=== PATIENT | male | born 1940 | race Hispanic/Latino ===

== ENCOUNTER 2016-12-16 06:30 | Inpatient (IN) | payer MEDICARE ==
[2016-12-16 07:16] LABS: Basophils % (Auto) 0.9 % (0.0-1.8); Eosinophils % (Auto) 6.5 % (0.0-4.3); Hematocrit 40.4 % (35.5-45.6); Hemoglobin 14.3 gm/dl (11.8-15.2); Mean Corpuscular HGB Conc 35 % (32-34); Mean Corpuscular Hemoglobin 31 pg (28-32); Mean Corpuscular Volume 89 fl (84-94); Platelet Count 184 K/mm3 (140-440); Red Blood Count 4.55 M/mm3 (3.65-5.03); Red Cell Distribution Width 13.1 % (13.2-15.2); White Blood Count 8.1 K/mm3 (4.5-11.0)
[2016-12-16 07:36] LABS: INR 0.99 (0.87-1.13)
[2016-12-16] MEDS ORDERED: ECOTRIN PO ONE (08:00)
[2016-12-16] MEDS ORDERED: NACL 0.9% 500 ML 500 ML IV SCH (08:00)
[2016-12-16] MEDS ORDERED: CALAN ONE (08:13)
[2016-12-16] MEDS ORDERED: XYLOCAINE 2% INFILTRATI ONE (08:13)
[2016-12-16] MEDS ORDERED: HEPARIN/NS 5000 UNIT/500ML(CATH LAB) 1,000 ML IR ONE (08:13)
[2016-12-16] MEDS ORDERED: NITROGLYCERIN SYRINGE 3 ML ONE (08:14)
[2016-12-16 08:20] LABS: Anion Gap 16 mmol/L; BUN/Creatinine Ratio 26; Blood Urea Nitrogen 13 mg/dL (9-20); Calcium 9.7 mg/dL (8.4-10.2); Carbon Dioxide 26 mmol/L (22-30); Chloride 102.4 mmol/L (98-107); Glucose 115 mg/dL (75-100); Sodium 140 mmol/L (137-145)
[2016-12-16] MEDS: VERSED ONE ×2 (08:58→09:40)
[2016-12-16] MEDS: SUBLIMAZE ONE ×2 (08:58→09:36)
[2016-12-16] MEDS: HEPARIN 10,000 UNITS/10 ML ONE ×2 (09:00→09:01)
[2016-12-16] MEDS ORDERED: NACL 0.9% 100 ML ONE (09:16)
[2016-12-16] MEDS: ANGIOMAX IV ONE ×2 (09:36→09:42)
[2016-12-16] MEDS ORDERED: EFFIENT PO ONE (09:54)
[2016-12-16] MEDS ORDERED: ALUM-MAG HYDROX-SIMETH 200-200-20MG/5ML ONE (09:54)
--- NOTE | 2016-12-16 10:35 | Cardiac Catherization Report ---
CARDIAC CATHETERIZATION REFERRING PHYSICIAN: Tevin Goncalves M.D. INDICATION FOR PROCEDURE: The patient is a very pleasant 76-year-old gentleman who presents with shortness of breath; moderate aortic stenosis, symptomatic; and questionable abnormal stress test, referred for left heart catheterization. Risks, benefits, and potential alternatives explained at length prior to obtaining informed consent. 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 Milton's test in right hand was normal. A 2 mL of 2% lidocaine used to anesthetize the right wrist. A standard 6-[place] hydrophilic sheath used to cannulate the right radial artery via modified Seldinger technique. All exchanges performed to exchange a J-tip guidewire. JL3.5 catheter used to engage left main. No dampening or ventricularization. Cineangiography performed in all projections. JR4 catheter used to cross the aortic valve under fluoroscopic guidance. Left ventriculography performed in 30 FRANZ and 30 SERBIAN projections via hand injections, catheter flushed. Manual pullback performed with continuous pressure monitoring. Catheter used to engage the right coronary. No dampening or ventricularization. Cineangiography performed in all projections. DATA: Aortic pressure is 140/60, LV pressure is 180. LVEDP of 20 mmHg. Left ventriculography revealed normal systolic performance with estimated ejection fraction of 55-60%. No evidence of aortic stenosis, high normal LVEDP. CORONARY ANATOMY: This is a right dominant system. Right coronary is a moderate sized vessel, courses AV groove, distally bifurcates in the posterior descending and posterolateral branch. No discrete stenosis noted. Scattered luminal irregularities. Left main is without significant disease. It bifurcates into left anterior descending and left circumflex. Left anterior descending artery is a moderate sized vessel, courses anterior intergroove, wraps around the apex. There is a 95% proximal discrete stenosis. There is a long 80% stenosis in the mid segment. Left circumflex without significant disease. At this point, we decided to proceed with PCI given the location and severity of the disease. Angiomax was loaded. Abnormal ACT is confirmed. An EBU 3.5 guide used to engage left main without difficulty. No dampening. A Prowater wire used to cross the lesion without difficulty. We used a 2.5 x 12 balloon to predilate the proximal LAD lesion. Next, we used a 3.0 x 12 Integrity bare metal stent. I used a bare metal stent given his moderate aortic stenosis in case he needed valve surgery in the coming year. Excellent result. Intravascular ultrasound was performed. Next, we used a 2.75 x 18 bare metal stent Integrity. Next, IVUS was performed. The entire length of the LAD and left main without other significant disease. Both stents are well apposed and expanded. No complications. Final angiogram reveals excellent result. CONCLUSIONS: 1. Significant single vessel coronary artery disease. Successful IVUS guided PCI, 95% proximal LAD with placement of bare metal stent Integrity (3.0 x 12) with excellent final angiographic and ultrasonographic result. 2. Successful IVUS guided PCI 80% mid LAD with placement of bare metal stent (2.75 x 18 Integrity) with excellent final angiographic and ultrasonographic result. 3. Moderate stable aortic stenosis with high normal LVEDP. 4. Normal left ventricular systolic performance with estimated ejection fraction of 55-60%. At this point, I believe his aortic valve is essentially moderate and asymptomatic. Effient, aspirin, statin therapy, risk factor modification. Follow up with me in the office in a week. A standard radial care. Results of procedure explained in length to the patient and family. All questions and concerns were addressed. JOB# [id number] NEETU/MAURICE
[2016-12-16] MEDS ORDERED: NACL 0.9% 1000 ML 0 ML ONE (10:39)
[2016-12-16] MEDS ORDERED: NORCO 5/325 PO ONE (11:30)
[2016-12-16] MEDS: TYLENOL PO PRN (20:54)
[2016-12-17] MEDS: TYLENOL PO PRN (06:30)
[2016-12-17] MEDS ORDERED: NORVASC PO SCH (06:30)
[2016-12-17 06:45] LABS: Basophils % (Auto) 0.5 % (0.0-1.8); Hematocrit 39.4 % (35.5-45.6); Hemoglobin 13.7 gm/dl (11.8-15.2); Mean Corpuscular HGB Conc 35 % (32-34); Mean Corpuscular Hemoglobin 31 pg (28-32); Mean Corpuscular Volume 89 fl (84-94); Platelet Count 169 K/mm3 (140-440); Red Blood Count 4.42 M/mm3 (3.65-5.03); Red Cell Distribution Width 13.6 % (13.2-15.2); White Blood Count 8.4 K/mm3 (4.5-11.0)
[2016-12-17 07:05] LABS: Creatine Kinase MB 12.8 ng/mL (0.0-4.0)
[2016-12-17 07:09] LABS: Anion Gap 15 mmol/L; BUN/Creatinine Ratio 18; Blood Urea Nitrogen 9 mg/dL (9-20); Calcium 8.9 mg/dL (8.4-10.2); Carbon Dioxide 26 mmol/L (22-30); Chloride 103.3 mmol/L (98-107); Creatine Kinase 67 units/L (55-170); Glucose 120 mg/dL (75-100); Potassium 3.4 mmol/L (3.6-5.0); Sodium 141 mmol/L (137-145)
[2016-12-17 07:25] LABS: Cholesterol 137 mg/dL (50-199); HDL Cholesterol 40 mg/dL (40-59); LDL Cholesterol,Direct 83 mg/dL (50-130); Triglycerides 72 mg/dL (2-149)
--- NOTE | 2016-12-17 08:30 | XRay Report ---
AP CHEST: HISTORY: chest pain AP view of the chest demonstrates a normal mediastinal and cardiac contour with clear lungs and normal bony and soft tissue structures. IMPRESSION: Unremarkable AP chest.
[2016-12-17] MEDS ORDERED: COZAAR PO SCH (10:00)
[2016-12-17] MEDS ORDERED: ASPIRIN PO SCH (10:00)
[2016-12-17] MEDS ORDERED: EFFIENT PO SCH (10:20)
--- NOTE | 2016-12-17 10:49 | Short Stay Summary ---
Short Stay Documentation Date of service: 12/17/16 - History H&P: obtained from office - Allergies and Medications Current Medications: Allergies adhesive Allergy (Verified 12/16/16 10:33) Rash Home Medications Medication Instructions Recorded Confirmed Last Taken Type Amlodipine Besylate [Amlodipine 5 mg PO HS 12/16/16 12/16/16 12/15/16 History Besylate] Aspirin [Adult Low Dose Aspirin EC] 81 mg PO DAILY 12/16/16 12/16/16 12/15/16 History Esomeprazole Magnesium [NexIUM] 40 mg PO QDAY 12/16/16 12/16/16 12/15/16 History Ibuprofen [Motrin] 800 mg PO Q8HR PRN 12/16/16 12/16/16 12/12/16 History Losartan/Hydrochlorothiazide 1 tab PO QDAY 12/16/16 12/16/16 12/15/16 History [Losartan-Hctz 100-12.5 mg Tab] Modafinil [Provigil] 200 mg PO QAM 12/16/16 12/16/16 1 Week Ago History Montelukast [Singulair] 10 mg PO QPM 12/16/16 12/16/16 12/15/16 History Triamcinolone 1 applicatio TP PRN 12/16/16 12/16/16 12/13/16 History diphenhydrAMINE [Benadryl ORAL LIQ] 25 mg PO HS PRN 12/16/16 12/16/16 12/15/16 History Active Medications Acetaminophen (Tylenol) 1,000 mg PO Q6H PRN PRN Reason: Pain, Mild (1-3) Last Admin: 12/17/16 06:30 Dose: 1,000 mg Amlodipine Besylate (Norvasc) 5 mg PO QDAY [facility] Last Admin: 12/17/16 06:29 Dose: 5 mg Aspirin (Aspirin) 325 mg PO QDAY [facility] Atorvastatin Calcium (Lipitor) 40 mg PO QHS [facility] Last Admin: 12/16/16 21:05 Dose: 40 mg Losartan Potassium (Cozaar) 12.5 mg PO QDAY [facility] Potassium Chloride (K-Dur) 40 meq PO ONCE ONE Stop: 12/17/16 10:27 Prasugrel (Effient) 10 mg PO QDAY [facility] - Brief post op/procedure progress note Date of procedure: 12/16/16 Pre-op diagnosis: abnormal stress test Post-op diagnosis: other (CAD) Procedure: [facility] with PCI of proximal LAD and mid LAD - see cath report Anesthesia: local Estimated blood loss: none Condition: stable - Disposition Condition at discharge: Stable Disposition: DC-01 TO HOME OR SELFCARE - Discharge Diagnoses (1) Coronary artery disease Status: Chronic Qualifiers: Coronary Disease-Associated Artery/Lesion type: due to calcified coronary lesion [place] vs. transplanted heart: N Associated angina: A Qualified Code(s): I25.10 - Atherosclerotic heart disease of [place] coronary artery without angina pectoris; I25.84 - Coronary atherosclerosis due to calcified coronary lesion; I25.84 - Coronary atherosclerosis due to calcified coronary lesion; I25.84 - Coronary atherosclerosis due to calcified coronary lesion (2) Stented coronary artery Status: Chronic (3) Aortic stenosis Status: Chronic Qualifiers: Cardiac valve disease etiology: C (4) Hypertension Status: Chronic Qualifiers: Hypertension type: H Short Stay Discharge Plan Activity: advance as tolerated Diet: low fat, low cholesterol, low salt Wound: open to air, keep clean and dry, per your surgeon's advice Follow up with: VIET MCWILLIAMS MD [Primary Care Provider] - 7 Days FRACISCO ZURITA MD [Staff Physician] - 7 Days ([place] office on 01/01/2017 @ 2: 45PM) Forms: CardCath PCI D/C Instructions Prescriptions: AtorvaSTATin [Lipitor] 40 mg PO QHS #30 tablet Prasugrel [Effient] 10 mg PO QDAY #30 tablet
[2016-12-17] MEDS ORDERED: K-DUR PO NR (11:30)
[2016-12-17 11:58] VITALS: BP 138/62
== END 2016-12-17 12:59 | disposition home or self-care (01) | DRG 249 ==
LOC: CATHLABREC 06:30 → 4A 10:20
PROVIDERS: ADMIT Internal Medicine; ATTEND Internal Medicine
PROC: 02703EZ Dilation of Coronary Artery, One Artery with Two Intraluminal Devices, Percutaneous Approach (ICD-10-PCS; principal; 2016-12-16)
PROC: 4A023N7 Measurement of Cardiac Sampling and Pressure, Left Heart, Percutaneous Approach (ICD-10-PCS; 2016-12-16)
PROC: B2111ZZ Fluoroscopy of Multiple Coronary Arteries using Low Osmolar Contrast (ICD-10-PCS; 2016-12-16)
PROC: B2151ZZ Fluoroscopy of Left Heart using Low Osmolar Contrast (ICD-10-PCS; 2016-12-16)
PROC: 6A751Z7 Ultrasound Therapy of Other Vessels, Multiple (ICD-10-PCS; 2016-12-16)
DX: I25.10 Atherosclerotic heart disease of native coronary artery without angina pectoris (principal); I35.0 Nonrheumatic aortic (valve) stenosis; I10 Essential (primary) hypertension; K22.70 Barrett's esophagus without dysplasia; I49.3 Ventricular premature depolarization; Z79.82 Long term (current) use of aspirin; Z79.899 Other long term (current) drug therapy
CPT/HCPCS: 36415; 71010; 80048; 80061; 82550; 82553; 84484; 85025; 85347; 85610; 85730; 92928; 92978; 93005; 93010; 93458; A9270-GY; C1725; C1753; C1769; C1876; C1887; C1894; J0583; J1644; J2250; J3010; J7030; J7040; Q9967

== ENCOUNTER 2021-08-28 06:31 | Day surgery (SDC) | payer MEDICARE ==
[2021-08-28] MEDS ORDERED: ASPIRIN EC 325 MG TAB PO NR (07:05)
[2021-08-28 07:25] LABS: Basophils # (Auto) 0.1 K/mm3 (0.0-0.1); Basophils % (Auto) 0.8 % (0.0-1.8); Eosinophils # (Auto) 0.5 K/mm3 (0.0-0.4); Eosinophils % (Auto) 6.9 % (0.0-4.3); Hematocrit 39.5 % (35.5-45.6); Hemoglobin 13.6 gm/dl (11.8-15.2); Lymphocytes # (Auto) 1.6 K/mm3 (1.2-5.4); Lymphocytes % (Auto) 23.3 % (13.4-35.0); Mean Corpuscular HGB Conc 35 % (32-34); Mean Corpuscular Volume 90 fl (84-94); Monocytes # (Auto) 0.9 K/mm3 (0.0-0.8); Monocytes % (Auto) 13.4 % (0.0-7.3); Platelet Count 173 K/mm3 (140-440); Red Cell Distribution Width 13.8 % (13.2-15.2)
[2021-08-28 07:37] LABS: Blood Urea Nitrogen 11 mg/dL (9-20); Calcium 9.7 mg/dL (8.4-10.2); Hemolysis Index 5
[2021-08-28 07:41] LABS: BUN/Creatinine Ratio 18
[2021-08-28 07:45] LABS: INR 0.97 (0.87-1.13)
[2021-08-28 07:46] LABS: Partial Thromboplastin Time 30.7 Sec. (24.2-36.6)
[2021-08-28] MEDS: SODIUM CHLORIDE 0.9% 500 ML 500 ML IV SCH ×3 (07:47→09:11)
[2021-08-28] MEDS ORDERED: VERAPAMIL 5 MG/2 ML INJ ONE (08:11)
[2021-08-28] MEDS: MIDAZOLAM 2 MG/2 ML INJ ONE ×2 (08:29→09:12)
[2021-08-28] MEDS: fentaNYL 100 MCG/2 ML INJ ONE ×2 (08:29→09:11)
[2021-08-28] MEDS: HEPARIN 10,000 UNITS/10 ML VIAL ONE ×2 (08:30→09:15)
[2021-08-28] MEDS: LIDOCAINE (1%) 10 MG/1 ML VIAL 20 ML MDV ONE ×2 (08:30→09:15)
[2021-08-28] MEDS: HEPARIN/NS 5000 UNIT/500ML 1,000 ML IR ONE ×2 (08:31→09:15)
[2021-08-28] MEDS: NITROGLYCERIN SYRINGE 3 ML ONE ×2 (08:32→09:15)
--- NOTE | 2021-08-28 09:08 | Electrocardiograph Report ---
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
--- NOTE | 2021-08-28 10:16 | Cardiac Catherization Report ---
DATE OF PROCEDURE: 08/28/2021 CARDIAC CATHETERIZATION REFERRING PHYSICIAN: Tevin Goncalves MD INDICATION FOR PROCEDURE: Severe aortic stenosis. PROCEDURE IN DETAIL: The patient was brought to chemical lab supervisor in a postabsorptive state, prepped and draped in sterile fashion. Milton's test in right hand is normal. A 2 mL of 2% lidocaine used to anesthetize the right wrist. A standard 6-[place] hydrophilic sheath used to cannulate the right radial artery via modified Seldinger technique. All exchanges performed to exchange a J-tip guidewire. JL3.5 catheter was used to engage the left main. No dampening or ventricularization. Cineangiography performed in all projections. JR4 catheter used to cross the aortic valve under fluoroscopic guidance. Left ventriculography was performed in the 30-degree FRANZ and 30-degree UPPER SORBIAN projections via hand injections, catheter flushed. Manual pullback performed with continuous pressure monitoring. Catheter used to engage the right coronary. No dampening or ventricularization. Next, catheter exchanged for a 6-[place] pigtail catheter. Root aortography was performed in the UPPER SORBIAN projection with power injector. Next, catheter removed from the body of wire, sheath removed. Manual pressure used to achieve hemostasis. There were no immediate complications. I directly supervised the administration of fentanyl and Versed for moderate sedation from 8:49 a.m. to 9:32 a.m. No immediate complications. The patient remained in normal sinus rhythm throughout the procedure. Aortic pressure is 127/80, LV pressure is 203, LVEDP of 20 mmHg. Left ventricular reveals normal systolic performance, estimated ejection fraction 55-60%. Root aortography reveals no evidence of dissection or ulcer. Mild central aortic insufficiency is present. Left main without significant disease, bifurcates into left anterior descending and left circumflex. Left circumflex, moderate sized vessel, courses AV groove, no significant disease. LAD is a moderate sized vessel, courses anterior intergroove, wraps around the apex, no significant disease, patent stent in the mid LAD. Right coronary is a moderate sized vessel, courses AV groove, no significant disease. CONCLUSIONS: 1. Severe valvular aortic stenosis with a peak to peak gradient of 70-75 mmHg and a mean gradient of 48-50 mmHg. 2. No significant epicardial coronary artery disease in this right dominant system. 3. Patent mid left anterior descending stent. 4. Normal left ventricular systolic performance, estimated ejection fraction of 60-65%. 5. Root aortography reveals mild aortic insufficiency with normal contour and no dissection or penetrating aortic ulcer. 6. Normal sinus rhythm throughout. 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 The patient will be set up to see [facility] at [place] for possible TAVR. The patient is clinically stable, continue medicines, standard radial care. Follow up with me in the office. TID: [id number] RECEIPT: [id number] NEETU/RUFINO
[2021-08-28] MEDS ORDERED: HYDROcodone/ACETAMINOPHEN 5-325 MG TAB PO PRN (11:00)
[2021-08-28] MEDS ORDERED: traMADol 50 MG TAB PO PRN (11:00)
--- NOTE | 2021-08-28 11:36 | Short Stay Summary ---
Short Stay Documentation Date of service: 08/28/21 - History H&P: obtained from office - Allergies and Medications Current Medications: Allergies adhesive Allergy (Verified 12/16/16 10:33) Rash bacitracin [From Neosporin ([id number])] Allergy (Verified 08/28/21 07:04) Rash neomycin [From Neosporin ([id number])] Allergy (Verified 08/28/21 07:04) Rash polymyxin B [From Neosporin ([id number])] Allergy (Verified 08/28/21 07:04) Rash Home Medications Medication Instructions Recorded Confirmed Last Taken Type Amlodipine Besylate 5 mg PO HS 12/16/16 08/28/21 08/28/21 History Esomeprazole Magnesium [NexIUM] 40 mg PO QDAY 12/16/16 08/28/21 08/28/21 History Montelukast [Singulair] 10 mg PO QPM 12/16/16 08/28/21 08/28/21 History Triamcinolone 1 applicatio TP PRN 12/16/16 08/28/21 08/28/21 History modafiniL [Provigil] 200 mg PO QAM 12/16/16 08/28/21 08/28/21 History Aspirin 325 mg PO QDAY tablet 12/17/16 08/28/21 08/28/21 Rx AtorvaSTATin [Lipitor] 40 mg PO QHS #30 tablet 12/17/16 08/28/21 08/28/21 Rx Cetirizine HCl [Cetirizine 5mg tab] 5 mg PO DAILY 08/28/21 08/28/21 08/28/21 History Losartan Potassium 100 mg PO DAILY 08/28/21 08/28/21 08/28/21 History Mirabegron [Myrbetriq] 50 mg PO QDAY 08/28/21 08/28/21 08/28/21 History modafiniL [Provigil] 200 mg PO QAM 08/28/21 08/28/21 1 Month Ago History ~07/28/21 Active Medications Hydrocodone Bitart/Acetaminophen (Hydrocodone/Acetaminophen 5-325 Mg Tab) 1 each PO Q4H PRN PRN Reason: Pain, Moderate (4-6) Stop: 08/28/21 22:00 Sodium Chloride (Nacl 0.9% 500 Ml) 500 mls @ 50 mls/hr IV DIRECT TADEO Stop: 08/28/21 17:59 Last Admin: 08/28/21 09:11 Dose: 50 mls/hr Tramadol HCl (Tramadol 50 Mg Tab) 50 mg PO Q4H PRN PRN Reason: Pain, Mild (1-3) Stop: 08/28/21 20:00 - Physical exam Integumentary: other (Dressing clean dry and intact with no signs of bleeding or hematoma) - Brief post op/procedure progress note Date of procedure: 08/28/21 Pre-op diagnosis: Aortic stenosis Post-op diagnosis: same (Aortic stenosis) Anesthesia: local Estimated blood loss: minimal - Hospital course Hospital course: Patient presents today for cardiac cath. Patient tolerated procedure well with no complications. Patient found to have severe valvular aortic stenosis with peak gradient of 70 to 75 mmHg and mean gradient of 40 to 50 mmHg's. No significant epicardial coronary artery disease and right dominant system. Patent mid left anterior descending state. See cath report for full detail. Patient to be discharged home and set up to see structural heart team at [place] for possible TAVR. Patient will follow-up in our clinic as an outpatient. Plan of care discussed with patient and daughter - Disposition Condition at discharge: Good Disposition: 01 HOME / SELF CARE / HOMELESS - Discharge Diagnoses (1) Aortic stenosis Status: Chronic (2) Coronary artery disease Status: Chronic Qualifiers: (3) Hypertension Status: Chronic (4) Stented coronary artery Status: Chronic Short Stay Discharge Plan Activity: advance as tolerated Diet: low fat, low cholesterol, low salt Wound: keep clean and dry, per your surgeon's advice Follow up with: MARCELA GREGORIO MD [Primary Care Provider] - 7 Days FRACISCO ZURITA MD [Staff Physician] - 7 Days Forms: CardCath PCI D/C Instructions
[2021-08-28 12:34] VITALS: BP 126/52
== END 2021-08-28 13:43 | disposition home or self-care (01) ==
LOC: CATHLABREC 06:31
PROVIDERS: ATTEND Internal Medicine
DX: I35.0 Nonrheumatic aortic (valve) stenosis (principal); I25.10 Atherosclerotic heart disease of native coronary artery without angina pectoris; I10 Essential (primary) hypertension; I73.9 Peripheral vascular disease, unspecified; E78.00 Pure hypercholesterolemia, unspecified; K21.9 Gastro-esophageal reflux disease without esophagitis; M19.90 Unspecified osteoarthritis, unspecified site; Z80.42 Family history of malignant neoplasm of prostate; Z88.8 Allergy status to other drugs, medicaments and biological substances; Z79.899 Other long term (current) drug therapy; Z79.82 Long term (current) use of aspirin; Z95.5 Presence of coronary angioplasty implant and graft; Z98.49 Cataract extraction status, unspecified eye; Z87.01 Personal history of pneumonia (recurrent); Z80.51 Family history of malignant neoplasm of kidney; Z98.890 Other specified postprocedural states
CPT/HCPCS: 36415; 80048; 85025; 85610; 85730; 93005; 93458; 93567; 99156; 99157; C1894; J1644; J1815; J2250; J3010; J7040; Q9967